=== PATIENT | male | born 1980 | race Caucasian/White ===

== ENCOUNTER 2016-08-13 09:20 | Day surgery (SDC) | payer OTHER ==
[2016-08-12 10:24] LABS: HEMATOCRIT 45.7 % (40.0-51.0); HEMOGLOBIN 15.9 g/dL (13.6-17.8)
[2016-08-12 10:45] LABS: A/G RATIO 1.5 (0.7-1.9); ALKALINE PHOSPHATASE 58 U/L (45-117); BUN (BLOOD UREA NITROGEN) 11 MG/DL (6-23); CALCIUM, SERUM 9.1 MG/DL (8.5-10.4); CHLORIDE, SERUM 105 MMOL/L (96-112); CO2 (CARBON DIOXIDE) 28 MMOL/L (24-34); CREATININE 0.99 MG/DL (0.70-1.30); GFR AFRICAN AMERICAN 112 ML/MIN (>=60); GFR NON AFRICAN AMERICAN 97 ML/MIN (>=60); GLOBULIN 2.7 G/DL (2.5-4.1); GLUCOSE, SERUM 90 MG/DL (60-99); POTASSIUM, SERUM 4.3 MMOL/L (3.5-5.3); SGOT(AST) 18 U/L (5-40); SGPT(ALT) 25 U/L (5-65); SODIUM, SERUM 140 MMOL/L (135-148); TOTAL BILIRUBIN 0.4 MG/DL (0-1.2); TOTAL PROTEIN 6.7 G/DL (6.0-8.5)
--- NOTE | ~2016-08-13 | OP ---
Record Of Operation [facility] [address] [place]. [address] NAME: LOPEZ BRADY : 76 STATUS : [facility]#: [id number] AGE: 35 ADM/REG DATE : 08/13/16 MR#: [id number] REPORT SERV DATE: 08/13/16 DICTATED BY: FORD MAGANA DATE: 08/13/16 REPORT STATUS : Draft TRANSCRIBED BY: MODL DATE: 08/13/16 DATE OF PROCEDURE: 08/13/2016 PREOPERATIVE DIAGNOSIS: Indirect left inguinal hernia. POSTOPERATIVE DIAGNOSIS: Indirect left inguinal hernia with indirect right inguinal hernia. PROCEDURE: Laparoscopic reduction and mesh patch repair of bilateral inguinal hernia. SURGEON: Ford Magana M.D. DESCRIPTION OF OPERATIVE PROCEDURE: The patient was brought to operating suite, placed in supine position, underwent satisfactory general endotracheal anesthesia without incident. The skin of the abdomen was scrubbed, prepped, and draped in usual sterile fashion. 0.5% Marcaine with epinephrine was utilized as supplemental local anesthesia. Infraumbilical incision was performed dissecting through the skin and subcutaneous tissues to the umbilical fascia. Inferolateral lateral retraction of the left exposed the medial aspect of the left anterior rectus sheath. This was incised and then the medial aspect of the left rectus muscle itself was identified and retracted laterally exposing the posterior left rectus sheath. A preperitoneal dissection balloon was inserted posterior to the left rectus sheath to the level of the pubic tubercle. It was insufflated under direct camera visualization. This created a preperitoneal dissection plane bilaterally. This balloon was then removed and replaced with a structural balloon and CO2 was insufflated for pressures of 15 mmHg throughout the case. After adequate insufflation pressure achieved, two additional 5 mm trocars were placed under direct visualization in the infraumbilical midline. Completion of the preperitoneal dissection was performed bilaterally, skeletonizing the inferior epigastric vessels, the cord structures, and Hesselbach's triangle. On the left, there was a relatively large indirect defect, on the right a small indirect defect. No indirect defects were noted. Two separately placed pieces of Bard 3DMax polypropylene mesh, size large, oriented left and right were utilized. There were both placed in local anesthesia, rolled up and placed in the preperitoneal space. They were unrolled over the inguinal canals bilaterally and plicated in position with multiple firings of the 5 mm helical Tacker. This was successful in reinforcing Hesselbach's triangle and covering the internal ring, and allowing the cord structures to egress below the lower edge of the mesh. Preperitoneal space was allowed to collapse and CO2 was "milked" from the preperitoneal space. Trocars were removed. No muscular bleeding was noted. The structural balloon was removed. The left anterior rectus sheath was closed with [id number] suture of 0 Vicryl, subcutaneous tissue closure with interrupted 4-0 Vicryl, running subcuticular stitch 4-0 Vicryl for the skin. Dermabond and skin adhesive were placed. Record Of Operation [facility] [address] [facility] [place]. [address] NAME: LOPEZ BRADY : 76 STATUS : [facility] PAT#: [id number] AGE: 35 ADM/REG DATE : 08/13/16 MR#: [id number] REPORT SERV DATE: 08/13/16 DICTATED BY: FORD MAGANA DATE: 08/13/16 REPORT STATUS : Draft TRANSCRIBED BY: JULIEN DATE: 08/13/16 The patient tolerated the procedure well and he was returned to PACU in stable condition. At the termination of the procedure sponge, needle, lap, and instrument counts were correct x3. ESTIMATED BLOOD LOSS: Less than 10 mL. JANNA/JULIEN Ford Magana M.D. / [id number] CC: Fay Dawn PAUL E
[~2016-08-13 09:20] MED LIST: KLONO1 PO
== END 2016-08-13 16:14 | disposition home or self-care (01) ==
LOC: SDC 09:20
PROVIDERS: Specialist
PROC: 0YUA4JZ Supplement Bilateral Inguinal Region with Synthetic Substitute, Percutaneous Endoscopic Approach (ICD-10-PCS; principal; 2016-08-13 10:45)
DX: K40.20 Bilateral inguinal hernia, without obstruction or gangrene, not specified as recurrent (principal); F31.9 Bipolar disorder, unspecified; Z79.899 Other long term (current) drug therapy; Z98.818 Other dental procedure status; Z98.890 Other specified postprocedural states
CPT/HCPCS: 80053; 85014; 85018; A9270-GY; C1726; C1727; C1781; J0690; J1170; J1885; J2250; J2405; J2710; J3010

== ENCOUNTER 2016-08-29 16:12 | Emergency (ER) | payer OTHER ==
[2016-08-29 14:15] LABS: BASOPHILS 0.6 %; BASOPHILS ABSOLUTE 0.05 10/3/uL (0.0-0.16); EOSINOPHILS 7.3 %; EOSINOPHILS ABSOLUTE 0.64 10/3/uL (0.0-0.53); ER CBC TAT 0 Hrs 05 Mins; HEMATOCRIT 45.7 % (40.0-51.0); HEMOGLOBIN 16.2 g/dL (13.6-17.8); IMMATURE GRANULOCYTES 0.2 %; IMMATURE GRANULOCYTES ABSOLUTE 0.02 10/3/uL (0.0-0.11); LYMPHOCYTES 22.7 %; MEAN CORPUS HGB CONC 35.4 g/dL (32.0-36.0); MEAN CORPUSCULAR HEMOGLOB 33.2 pg (26.0-34.0); MEAN CORPUSCULAR VOLUME 93.6 fL (80-100); MEAN PLATELET VOLUME 9.8 fL (9.2-13.0); MONOCYTES 5.6 %; MONOCYTES ABSOLUTE 0.49 10/3/uL (0.21-1.20); NEUTROPHILS 63.6 %; NEUTROPHILS ABSOLUTE 5.61 10/3/uL (2.02-8.40); RBC DISTRIBUTION WIDTH 12.6 % (12.0-16.0); RED CELL COUNT 4.88 10/6/uL (4.7-6.1); WHITE BLOOD CELLS 8.8 10/3/uL (4.5-10.5)
[2016-08-29 14:16] LABS: MANUAL DIFF NO %; PLATELET COUNT 322 10/3/uL (150-400)
[2016-08-29 14:29] LABS: A/G RATIO 1.3 (0.7-1.9); ALBUMIN 3.5 G/DL (3.5-5.0); ALKALINE PHOSPHATASE 52 U/L (45-117); CALCIUM, SERUM 8.9 MG/DL (8.5-10.4); CHLORIDE, SERUM 108 MMOL/L (96-112); CO2 (CARBON DIOXIDE) 26 MMOL/L (24-34); CREATININE 0.95 MG/DL (0.70-1.30); GFR AFRICAN AMERICAN 118 ML/MIN (>=60); GFR NON AFRICAN AMERICAN 102 ML/MIN (>=60); GLOBULIN 2.7 G/DL (2.5-4.1); POTASSIUM, SERUM 3.7 MMOL/L (3.5-5.3); SGOT(AST) 14 U/L (5-40); SGPT(ALT) 20 U/L (5-65); SODIUM, SERUM 140 MMOL/L (135-148); TOTAL BILIRUBIN 0.4 MG/DL (0-1.2); TOTAL PROTEIN 6.2 G/DL (6.0-8.5)
[2016-08-29 14:31] LABS: BUN (BLOOD UREA NITROGEN) 6 MG/DL (6-23); GLUCOSE, SERUM 129 MG/DL (60-99)
[2016-08-29 17:05] LABS: WBC (NOT ORDERED) (RFLEX) 0 (0-5)
[2016-08-29 17:17] LABS: ASCORBIC ACID (UR NOT ORDER) NEG (NEG); BILIRUBIN, URINE NEGATIVE (NEG); ER URINALYSIS TAT 0 Hrs 13 Mins; KETONE, URINE TRACE MG/DL (NEG); LEUKOCYTE ESTERASE(NOT OR NEG (NEG); NITRITE (URINE) NEG (NEG)
== END 2016-08-29 18:34 | disposition home or self-care (01) ==
LOC: ER 16:12
PROVIDERS: Hospitalist
DX: G89.18 Other acute postprocedural pain (principal); R10.9 Unspecified abdominal pain; Z88.6 Allergy status to analgesic agent; Z79.899 Other long term (current) drug therapy
CPT/HCPCS: 71010; 74177; 80053; 81001; 83690; 85025; 87040; 99284; J2405; Q9967